=== PATIENT | female | born 2000 | race African-American/Black ===

== ENCOUNTER 2019-02-10 11:38 | Emergency (ER) | payer BC, OTHER ==
--- NOTE | 2019-02-10 13:31 | ED ---
Abdominal Pain/Female - HPI Summary HPI Summary: The patient is a 18 y/o presenting to [facility] with a chief complaint of intermittent episodes of right lower quadrant pain since 02/06/19. She reports that the pain persisted for the next two days but became worse as she developed nausea and vomiting, and the sharp pain radiated throughout the whole right side of the abdomen. She denies any fevers, chills, vaginal bleeding, or vaginal discharge. Currently, her pain is rated 4/10 in severity. LNMP: . PMHx: none. FHx: fibroids, diverticulitis. Nonsmoker, no EtOH, no substance use. Medications reviewed. Allergies noted. - History of Current Complaint Chief Complaint: EDAbdPain Stated Complaint: ABD PAIN PER PT Time Seen by Provider: 02/10/19 13:17 Hx Obtained From: Patient Onset/Duration: Sudden Onset, Lasting Days - four, Still Present Timing: Minutes Severity Initially: Mild Severity Currently: Moderate Pain Intensity: 4 Pain Scale Used: 0-10 Numeric Location: Discrete At: RLQ Radiates: No Character: Sharp Aggravating Factor(s): Nothing Alleviating Factor(s): Nothing Associated Signs and Symptoms: Positive: Nausea, Vomiting. Negative: Fever, Vaginal Bleeding, Vaginal Discharge, Other: - chills Allergies/Adverse Reactions: Allergies Allergy/AdvReac Type Severity Reaction Status Date / Time No Known Allergies Allergy Verified 02/10/19 11:45 PMH/Surg Hx/FS Hx/Imm Hx Endocrine/Hematology History: Denies: Hx Diabetes Cardiovascular History: Denies: Hx Hypercholesterolemia, Hx Hypertension History: Reports: Other Problems/Disorders - no hx of ovarian cyst - Surgical History Surgical History: None Surgery Procedure, Year, and Place: none Infectious Disease History: No Infectious Disease History: Denies: Traveled Outside the [place] in Last 30 Days - Family History Known Family History: Positive: Other - fibroids, diverticulitis - Social History Alcohol Use: None Hx Substance Use: No Substance Use Type: Reports: None Hx Tobacco Use: No Smoking Status (MU): Never Smoked Tobacco Review of Systems Negative: Fever, Chills Positive: Abdominal Pain - RLQ, Vomiting, Nausea Negative: discharge, other - vaginal bleeding All Other Systems Reviewed And Are Negative: Yes Physical Exam - Summary Physical Exam Summary: VITAL SIGNS: Reviewed. GENERAL: Patient is a well-developed and nourished female who is lying comfortable in the stretcher. Patient is not in any acute respiratory distress. HEAD AND FACE: Normocephalic and atraumatic. EYES: PERRLA, EOMI x 2, No injected conjunctiva. EARS: Hearing grossly intact. Ear canals and tympanic membranes are WNL. MOUTH: Oropharynx within normal limits. NECK: Supple, trachea is midline, no adenopathy, no JVD. CHEST: Symmetric, no tenderness at palpation. LUNGS: Clear to auscultation bilaterally. No wheezing or crackles. CVS: RRR, S1 and S2 present, no murmurs or gallops appreciated. ABDOMEN: Soft, right lower quadrant tenderness. No signs of distention. Positive bowel sounds. No rebound, no guarding, and no masses palpated. No abdominal bruit or pulsations. EXTREMITIES: FROM in all major joints, no edema, no cyanosis or clubbing. NEURO: Alert and oriented x 3. No acute neurological deficits. Speech is normal. SKIN: Dry and warm. Triage Information Reviewed: Yes Vital Signs On Initial Exam: Initial Vitals Temp Pulse Resp BP Pulse Ox 97.9 F 71 18 123/71 98 02/10/19 11:43 02/10/19 11:43 02/10/19 11:43 02/10/19 11:43 02/10/19 11:43 Vital Signs Reviewed: Yes Procedures - Sedation Patient Received Moderate/Deep Sedation with Procedure: No Diagnostics - Vital Signs Vital Signs Temp Pulse Resp BP Pulse Ox 02/10/19 11:43 97.9 F 71 18 123/71 98 - Laboratory Result Diagrams: 02/10/19 13:36 02/10/19 13:36 Lab Statement: Any lab studies that have been ordered have been reviewed, and results considered in the medical decision making process. - Ultrasound Appendix US Ultrasound Interpretation Completed By: Radiologist Summary of Ultrasound Findings: Impression: Appendix not visualized. ED physician has reviewed this report. Transvaginal US Ultrasound Interpretation Completed By: Radiologist Summary of Ultrasound Findings: Impression: Right ovary not visualized. Left ovary is unremarkable. ED physician has reviewed this report. Re-Evaluation - Re-Evaluation First Eval Re-Evaluation Time: 15:00 Change: Improved Comment: Her pain has resolved. We discussed findings thus far. She declines a Abd/Pel CT and pelvic exam at this time despite speaking to her about the risks and benefits. Nurse Callum states that the patient has asked for a note for being seen in the ED today. Abdominal Pain Fem Course/Dx - Course Course Of Treatment: Patient is a 18 y/o F with chief complaint of sudden onset RLQ pain onset four days ago with worsening two days ago with new onset of nausea and vomiting without any vaginal discharge or bleeding, fevers, or chills. No hx of ovarian cysts. Transvaginal ultrasound impression: Right ovary not visualized. Left or right is unremarkable. Right lower quadrant ultrasound impression: Appendix is not visualized. Blood work without any significant abnormality. The patient doesnt have any increase in WBCs, and the CRP is less than 1. After multiple abdominal exams, the patient reports that abdominal pain has resolved. Therefore, since the patient doesnt have any abnormal labs, and abdominal pain has resolved without any pain medications, I have low suspicion for an acute appendicitis. We discussed the benefits and risk of the CT of the abdomen and pelvis and patient declined at this time. Therefore, the patient will be discharged home with follow-up with PCP. I discussed all the findings and test results with the patient. Patient was instructed to return to the emergency room immediately if any of the symptoms return worsens. Plan of care was discussed with the patient and understands and agrees. All questions were answered at patient satisfaction. There were no further complaints or concerns. Lung exam before discharge: CTA B/L. Good air exchange. No wheezing or crackles heard. CVS: S1 and S2 present. No murmurs appreciated. Patient is alert and oriented x 3. Patient is hemodynamically stable. Patient will be discharged home with follow up PCP in the next 2-3 days. - Diagnoses Provider Diagnoses: Lower abdominal pain Discharge ED - Sign-Out/Discharge Documenting (check all that apply): Patient Departure - Patient will be discharged home. - Discharge Plan Condition: Stable Disposition: HOME Patient Education Materials: Abdominal Pain (ED) Forms: *School Release Referrals: [facility] [Primary Care Provider] - 3 Days Additional Instructions: Follow up with your primary care provider in 2-3 days. Return to the emergency department for any new or worsening symptoms. - Billing Disposition and Condition Condition: STABLE Disposition: Home - Attestation Statements Document Initiated by Scribe: Yes Documenting Scribe: Rosario Ureña Provider For Whom Monicaibe is Documenting (Include Credential): Dr. Will Reis MD Scribe Attestation: I, Rosario Ureña, scribed for Dr. Will Reis MD on 02/10/19 at 1859. Scribe Documentation Reviewed: Yes Provider Attestation: The documentation as recorded by the monicaibe, Rosario Ureña accurately reflects the service I personally performed and the decisions made by me, Dr. Will Reis MD Status of Scribe Document: Ready
[2019-02-10 13:50] LABS: Hematocrit 38 % (35-47); Hemoglobin 12.9 g/dL (12.0-16.0); Mean Corpuscular HGB Conc 34 g/dL (31-36); Mean Corpuscular Hemoglobin 31 pg (27-31); Mean Corpuscular Volume 92 fL (80-97); Mean Platelet Volume 10.6 fL (7.4-10.4); Platelet Count 174 10^3/uL (150-450); Red Blood Count 4.17 10^6 /uL (3.70-4.87); Red Cell Distribution Width 13 % (10-15); White Blood Count 7.1 10^3/uL (3.5-10.8)
[2019-02-10 14:14] LABS: HCG Pregnancy < 0.60 mIU/mL
[2019-02-10 14:19] LABS: ALT 13 U/L (7-52); AST 16 U/L (13-39); Albumin 4.1 g/dL (3.2-5.2); Albumin/Globulin Ratio 1.4 (1-3); Alkaline Phosphatase 55 U/L (34-104); Anion Gap 4 mmol/L (2-11); BUN/Creatinine Ratio 18.5 (8-20); Blood Urea Nitrogen 12 mg/dL (6-24); C Reactive Protein < 1.00 mg/L (<8.01); CO2 Carbon Dioxide 27 mmol/L (22-32); Calcium 9.4 mg/dL (8.6-10.3); Chloride 106 mmol/L (101-111); EGFR African American 142.1 (>60); EGFR Non-African American 117.4 (>60); Globulin 2.9 g/dL (2-4); Glucose 79 mg/dL (70-100); Potassium 3.9 mmol/L (3.5-5.0); Sodium 137 mmol/L (135-145)
[2019-02-10 14:28] LABS: ABS Basophils 0.1 10^3/ul (0-0.2); ABS Eosinophils 0.2 10^3/ul (0-0.6); ABS Monocytes 0.6 10^3/ul (0-0.8); ABS Neutrophils 4.3 10^3/ul (1.5-7.7); Eosinophil % 2.2 %; Lymphocyte % 28.2 %
[2019-02-10 15:08] VITALS: BP 100/64
== END 2019-02-10 15:07 | disposition home or self-care (01) ==
LOC: ED 11:38
DX: R10.31 Right lower quadrant pain (principal)
CPT/HCPCS: 36415; 76705; 76830; 80053; 83605; 83690; 84702; 85025; 86140; 99282